=== PATIENT | female | born 1945 | race Caucasian/White ===

== ENCOUNTER 2018-02-16 00:58 | Emergency (ER) | payer MEDICARE, OTHER ==
[2018-02-16 01:09] VITALS: BP 130/65
--- NOTE | 2018-02-16 01:41 | EDM.PDOC ---
ED HPI GENERAL MEDICAL PROBLEM - General Chief Complaint: Head Injury Stated Complaint: FELL AND HIT LEFT SIDE OF FACE Time Seen by Provider: 02/16/18 01:09 Source of Information: Reports: Patient, Family () History Limitations: Reports: No Limitations - History of Present Illness INITIAL COMMENTS - FREE TEXT/NARRATIVE: The patient states that she fell asleep in a chair, then fell out of it onto a linoleum floor around midnight tonight. The patient recalls the fall, and does not believe that there was any loss of consciousness. The patient states that she felt primarily onto the left side of her face. She presents with a contusion to the lateral aspect of her left eyebrow and to her left zygomatic area, and pain to the right postero-lateral aspect of her neck. She is otherwise uninjured. She denies any tingling, numbness, or weakness. The patient states that she is on Coumadin for atrial fibrillation. Her INR was last checked last week, and was 2.1, although she states that she has been having some fluctuation in her INR recently. The patient states that she had a meningioma excised in 2006. The patient's PCP is a [facility] in [place]. Left Face Pain Score (Numeric/FACES): 7 - Related Data Allergies Allergy/AdvReac Type Severity Reaction Status Date / Time Sulfa (Sulfonamide Allergy Rash Verified 02/16/18 01:09 Antibiotics) Home Meds: Home Meds DULoxetine [Cymbalta] 60 mg PO DAILY 12/12/13 [History] Warfarin [Coumadin] 5 mg PO DAILY 06/23/14 [History] Canagliflozin/Metformin HCl [Invokamet 150-1,000 mg Tablet] 1 tab PO BID [History] Digoxin [Lanoxin] 250 mcg PO DAILY@1200 tablet 01/13/16 [Rx] Diltiazem [Cardizem CD] 240 mg PO DAILY #30 cap.cd 01/13/16 [Rx] Furosemide [Lasix] 40 mg PO BID 02/16/18 [History] Insulin Glarg,Human.Rec.Analog [Lantus Solostar] 35 units SQ BEDTIME 02/16/18 [ History] Insulin Lispro [Humalog Kwikpen U-100] 7 units SQ TID 02/16/18 [History] traMADol [Ultram] 75 mg PO Q4HR PRN 02/16/18 [History] Past Medical History HEENT History: Reports: Impaired Vision Cardiovascular History: Reports: Afib (paroxysmal), High Cholesterol, Hypertension Genitourinary History: Reports: Renal Calculus DISABILITY SPECIALIST History: Reports: Musculoskeletal History: Reports: Fracture (bilateral ankles), Other (See Below ) (BLE lymphedema, cause unknown) Neurological History: Reports: Other (See Below) (Meningioma, excised) Psychiatric History: Reports: Other (See Below) (Fibromyalgia) Endocrine/Metabolic History: Reports: Diabetes, Type II, Obesity/BMI 30+ - Infectious Disease History Infectious Disease History: Reports: Chicken Pox, Measles, Mumps - Past Surgical History Head Surgeries/Procedures: Reports: Other (See Below) (Meningioma excision 2006) HEENT Surgical History: Reports: Cataract Surgery Female Surgical History: Reports: Lithotripsy/ESWL Other Neurological Surgeries/Procedures: Brain tumor surgery 2006 Social & Family History - Family History Family Medical History: Noncontributory - Tobacco Use Smoking Status *Q: Never Smoker Second Hand Smoke Exposure: No - Caffeine Use Caffeine Use: Reports: None - Recreational Drug Use Recreational Drug Use: No - Living Situation & Occupation Living situation: Reports: , with Spouse Occupation: Retired ED ROS GENERAL - Review of Systems Review Of Systems: ROS reveals no pertinent complaints other than HPI. ED EXAM, HEAD INJURY - Physical Exam Exam: See Below Exam Limited By: No Limitations General Appearance: Alert, WD/WN, No Apparent Distress Head: Normocephalic, Facial Ecchymosis (To the lateral aspect of the left eyebrow, and to the left zygomatic area. Both areas associated with mild swelling.) Eyes: Bilateral Eye: EOMI, Normal Inspection, PERRL Ears: Normal External Exam, Normal Canal, Hearing Grossly Normal, Normal TMs Nose: Normal Inspection, No Blood Throat/Mouth: Normal Inspection, Normal Lips, Normal Voice, No Airway Compromise Neck: Full Range of Motion, Normal Alignment, Normal Inspection, Tenderness ( Right posterolateral area only) Respiratory: No Respiratory Distress, Lungs Clear, Normal Breath Sounds, No Accessory Muscle Use Cardiovascular: Normal Peripheral Pulses, Regular Rate, Rhythm, No Gallop, No JVD, No Murmur, No Rub GI/Abdominal Exam: Normal Bowel Sounds, Soft, Non-Tender, No Organomegaly, No Distention, No Abnormal Bruit, No Mass, Other (Obese) (Female) Exam: Deferred Rectal (Female) Exam: Deferred Extremities: Normal Range of Motion, Non-Tender, Normal Capillary Refill, Other (Bilateral lower extremity edema, with bilateral compression stockings on) 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 II-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 nml As Tested, No Motor/Sensory Deficits (Poor effort with neuro exam, but no focal neurologic deficits found), Alert, Oriented x 3 Skin: Normal Color, Warm/Dry Course - Vital Signs Last Recorded V/S: Last Vital Signs Temp 36.4 C 02/16/18 01:04 Pulse 82 02/16/18 01:04 Resp 18 02/16/18 01:04 BP 130/65 02/16/18 01:04 Pulse Ox 92 L 02/16/18 01:04 - Orders/Labs/Meds Orders: Active Orders 24 hr Category Date Time Status Cervical Spine wo Cont [CT] Stat Exams 02/16/18 01:23 Taken Head wo Cont [CT] Stat Exams 02/16/18 01:23 Taken Labs: Laboratory Tests 02/16/18 Range/Units 01:30 PT 55.5 H* (9.5-12.1) SECONDS INR 5.26 H* - Re-Assessments/Exams Free Text/Narrative Re-Assessment/Exam: 02/16/18 02:15 CT of the head without contrast is read by [facility] as "No evidence for acute transcortical infarct, acute intracranial hemorrhage, or mass effect. " 02/16/18 02:19 CT of the cervical spine without contrast is read by [facility] as "No acute fracture or traumatic subluxation." 02/16/18 02:22 Test results discussed with the patient and her . The patient's INR returned supratherapeutic at 5.26, however, treatment, such as vitamin K, is not indicated, as the patient does not have an active bleed. The only treatment recommended is withholding Coumadin, then restarting at a lower dose. The patient states that she ordinarily takes her Coumadin in the afternoon. I am going to recommend that she not take her Coumadin this afternoon, but that she contact her prescribing physician for further instructions. Departure - Departure Time of Disposition: 02:23 Disposition: Home, Self-Care 01 Condition: Good Clinical Impression: Fall at home, Facial contusion, Neck muscle strain, Supratherapeutic INR - Discharge Information Referrals: PCP,Not In Area [Primary Care Provider] - Forms: ED Department Discharge Additional Instructions: You were seen in the emergency room after falling out of a chair at home, striking the left side of your face and hurting your neck. Workup in the ER included a CT scan of your head, a CT scan of the neck, and a check of your INR (Coumadin number). The CT scans of your head and neck returned normal. Your INR returned elevated at 5.26. We recommend that you not to take your Coumadin this afternoon, Wednesday, 2017, but that you also contact the provider that prescribes your Coumadin, for further instructions. If any other problems, please do not hesitate to return to the ER. - My Orders Last 24 Hours: My Active Orders 02/16/18 01:23 Cervical Spine wo Cont [CT] Stat Head wo Cont [CT] Stat - Assessment/Plan Last 24 Hours: My Active Orders 02/16/18 01:23 Cervical Spine wo Cont [CT] Stat Head wo Cont [CT] Stat
--- NOTE | 2018-02-16 07:14 | CT ---
Head CT Technique: Multiple axial sections through the brain were obtained. Intravenous contrast was not utilized. Comparison: Prior MRI brain dated 11/07/15. Findings: Ventricles along with basal cisterns and sulci over the convexities are mildly prominent. Focal atrophy of the right cerebellar hemisphere is seen likely representing encephalomalacia from previous surgery. Adjacent craniotomy is noted. No other abnormal parenchymal densities are seen. No evidence of intracranial hemorrhage. No midline shift or mass effect is seen. Bone window settings were reviewed which show the visualized sinuses to appear clear. Atherosclerotic calcification is noted within the carotid siphon. No acute calvarial abnormality is seen. Impression: 1. Previous right sided craniotomy with adjacent encephalomalacia within the right peripheral cerebellar hemisphere. 2. No acute intracranial abnormality is seen. Diagnostic code #2 I agree with preliminary report issued by [facility] ([facility] preliminary report dictated on 02/09/17, 3:11 AM Central Time)
--- NOTE | 2018-02-16 07:21 | CT ---
CT cervical spine Technique: Multiple axial sections were obtained from above C1 to the bottom of T2. Reconstructed sagittal and coronal images were reviewed. Comparison: No prior cervical spine CT exam, previous cervical spine plain film study of 04/01/15 is available. Findings: Fusion is seen between the vertebral bodies of C5 and C6. Moderate disc space narrowing is noted at C4-C5. Mild disc space narrowing is noted at C6-C7. Anterior osteophytes are noted at C4-C5 and C6-C7. Vertebral body heights are maintained. Previous right sided occipital craniotomy is noted. Minimal left-sided neural foraminal stenosis is noted at C4-C5. Moderate left-sided neural foraminal stenosis is noted at C5-C6. Other neural foramina appear to be patent. No fracture is seen. No abnormal subluxation is identified. Minimal degenerative change is scattered within the apophyseal joints. Mild degenerative spurring is noted within the uncovertebral joints at C4-C5 and C6-C7. Impression: 1. Degenerative change as noted above. 2. Fusion between the vertebral bodies of C5 and C6. 3. Nothing acute is seen on CT study of the cervical spine. Diagnostic code #2 I agree with preliminary report issued by [facility] ([facility] preliminary report dictated on 02/16/19, 3:16 AM Central Time)
== END 2018-02-16 02:35 | disposition home or self-care (01) ==
LOC: JD.ED 00:58
DX: S16.1XXA Strain of muscle, fascia and tendon at neck level, initial encounter (principal); S00.12XA Contusion of left eyelid and periocular area, initial encounter; R79.1 Abnormal coagulation profile; E78.00 Pure hypercholesterolemia, unspecified; I10 Essential (primary) hypertension; E11.9 Type 2 diabetes mellitus without complications; Z88.2 Allergy status to sulfonamides; Z79.01 Long term (current) use of anticoagulants; Z79.4 Long term (current) use of insulin; Z79.899 Other long term (current) drug therapy; W07.XXXA Fall from chair, initial encounter
CPT/HCPCS: 36415; 70450; 70450-26; 72125; 72125-26; 85610; 99284; 99284-25

== ENCOUNTER 2021-10-19 09:47 | Emergency (ER) | payer MEDICARE, OTHER ==
[2021-10-19 10:01] VITALS: BP 154/79; PULSE 108
[2021-10-19] MEDS: Sodium Chloride 0.9% 1,000 ML IV ONE (11:05)
[2021-10-19] MEDS: Ondansetron 4 MG/2 ML SDV IVPUSH ONE ×2 (12:42→16:04)
[2021-10-19] MEDS: Ondansetron 4 MG/2 ML SDV ONE (16:04)
[2021-10-19] MEDS: Prochlorperazine 10 MG/2 ML SDV IVPUSH ONE (16:35)
[2021-10-19] MEDS: Prochlorperazine 5 MG Tab PO ONE (19:38)
[2021-10-19] MEDS: Nitrofurantoin Monohydrate/Macrocrystalline 100 MG Cap PO ONE (19:38)
[2021-10-19] MEDS: Pramipexole 0.25 MG Tab PO ONE (19:39)
== END 2021-10-19 19:45 | disposition home or self-care (01) ==
LOC: JD.ED 09:47
DX: N39.0 Urinary tract infection, site not specified (principal); K52.9 Noninfective gastroenteritis and colitis, unspecified; I48.91 Unspecified atrial fibrillation; E78.00 Pure hypercholesterolemia, unspecified; I10 Essential (primary) hypertension; E11.9 Type 2 diabetes mellitus without complications; E66.9 Obesity, unspecified; Z68.38 Body mass index [BMI] 38.0-38.9, adult; Z88.2 Allergy status to sulfonamides; Z79.01 Long term (current) use of anticoagulants; Z79.4 Long term (current) use of insulin; Z79.899 Other long term (current) drug therapy; Z20.822 Contact with and (suspected) exposure to COVID-19
CPT/HCPCS: 36415; 71045; 71045-26; 80053; 81001; 83605; 84484; 85025; 87086; 87088; 87186; 87502-QW; 93005; 93010; 96374; 96375; 96376; 99284; 99284-25; A9270-GY; J0780; J2405; J7030; Q0164; U0002